=== PATIENT | male | born 1990 | race Caucasian/White ===

== ENCOUNTER 2017-01-19 20:05 | Emergency (ER) | payer SELFPAY ==
[~2017-01-19] VITALS: Ht 175.3 cm; Wt 72.6 kg
[~2017-01-19 20:05] MED LIST: AMOXICILLIN; NEXIUM20 MG PO; ZOFRAN ODT4 MG PO
--- NOTE | 2017-01-19 20:08 | NUR ---
[facility] [place] [facility] TO ER OF1
[2017-01-19 20:09] VITALS: BP 156/86
--- NOTE | 2017-01-19 20:09 | NUR ---
26/M [place] [employer] C/O PRE BOOK. PD STATES PT BEING BOOKED FOR PUBLIC INTOXICATION. PT HAS LAC ON RIGHT EYEBROW <1CM IN LENGHT; BLEEDING UNDER CONTROL AT THIS TIME. AAOx4, PERRLA, BREATHING EVEN AND EFFORTLESS, VSS. ERMD NOTIFIED OF PATIENT STATUS.
--- NOTE | 2017-01-19 20:19 | NUR ---
Patient being evaluated by physician.
[2017-01-19] MEDS ORDERED: BACITRACIN OINT 500 UNITS/GM PKT TP ONE (20:31)
[2017-01-19 20:42] VITALS: BP 142/84
--- NOTE | 2017-01-19 20:42 | NUR ---
Patient discharged with v/s stable. Written and verbal after care instructions given and explained. Patient verbalized understanding. Police with in custody. All questions addressed prior to discharge. Advised to follow up with PMD. NO S/S OF DISTRESS ON DISCHARGE.
== END 2017-01-19 20:42 ==
LOC: MED 20:05
DX: Z02.89 Encounter for other administrative examinations (principal); K21.9 Gastro-esophageal reflux disease without esophagitis; F17.200 Nicotine dependence, unspecified, uncomplicated; Z88.6 Allergy status to analgesic agent; Z71.6 Tobacco abuse counseling

== ENCOUNTER 2018-09-19 08:25 | Emergency (ER) | payer MEDICAID ==
[~2018-09-19] VITALS: Ht 177.8 cm; Wt 74.8 kg
[~2018-09-19 08:25] MED LIST changes: -AMOXICILLIN; +ESOM20EC PO; -NEXIUM20 MG PO; +ONDA4ODT1 PO; -ZOFRAN ODT4 MG PO
[2018-09-19 08:35] VITALS: BP 114/91
--- NOTE | 2018-09-19 08:41 | NUR ---
PATIENT PRESENTS TO ED WITH THE CHIEF C/O LOWER BACK PAIN SINCE COUPLE OF WEEKS AND COUGH X1 MONTHS. PT STATES SYMPTOMS GET WORSE. DENIES BLOOD IN SPUTUM. PT HAD FEVER 2 DAYS AGO. TOOK NICLO FOR FEVER. DENIES N/V/D; SKIN IS PINK/WARM/DRY; AAOX4 WITH EVEN AND STEADY GAIT; LUNGS CLEAR BL; HR EVEN AND REGULAR; PT DENIES ANY FEVER, CP, SOB AT THIS TIME. HAS COUGH AT THIS TIME; PATIENT STATES PAIN OF 6/10 AT THIS TIME; VSS; PATIENT POSITIONED FOR COMFORT; HOB ELEVATED; BEDRAILS UP X2; BED DOWN. ER MD MADE AWARE OF PT STATUS.
--- NOTE | 2018-09-19 08:59 | NUR ---
PT TAKEN BY RADIOLOGY FOR CHEST X-RAY VIA WHEEL CHAIR. PT ON STABLE CONDITION.
[2018-09-19] MEDS ORDERED: HYDROcodone/APAP 5/325 MG 1 TAB TAB PO ONE (09:45)
[2018-09-19 09:56] LABS: BASOPHILS % (AUTO) 1.1 % (0.0-2.0); EOSINOPHILS # (AUTO) 0.2 K/uL (0-0.4); EOSINOPHILS % (AUTO) 5.4 % (0.0-4.0); HEMATOCRIT 49.1 % (36-52); HEMOGLOBIN 16.4 g/dL (12.0-18.0); LYMPHOCYTES # (AUTO) 1.5 K/uL (2.0-11.5); LYMPHOCYTES % (AUTO) 32.8 % (20.5-51.1); MEAN CORPUSCULAR HEMOGLOBIN 30 pg (27-31); MEAN CORPUSCULAR HGB CONC 33 g/dL (33-37); MEAN CORPUSCULAR VOLUME 90.7 fL (80-94); MONOCYTES # (AUTO) 0.3 K/uL (0.8-1.0); MONOCYTES % (AUTO) 7.7 % (1.7-9.3); NEUTROPHILS # (AUTO) 2.4 K/uL (1.8-7.7); PLATELET COUNT (AUTO) 203 K/uL (140-450); RED BLOOD CELL COUNT(AUTO) 5.41 MIL/uL (4.20-6.10); RED CELL DISTRIBUTION WIDTH 14.5 % (11.6-13.7); WHITE BLOOD COUNT (AUTO) 4.5 K/uL (4.8-10.8)
--- NOTE | 2018-09-19 09:59 | NUR ---
PT TAKEN BY FUR POINTER FOR CT ABDOMEN VIA WHEEL CHAIR.
--- NOTE | 2018-09-19 10:05 | NUR ---
BACK FROM CT.
[2018-09-19 10:14] LABS: ANION GAP 8.7 (8-16); CARBON DIOXIDE 32.2 mmol/L (21-32); POTASSIUM 4.9 mmol/L (3.5-5.1)
[2018-09-19 10:20] LABS: ALBUMIN 3.7 g/dL (3.4-5.0); TOTAL BILIRUBIN 0.5 mg/dL (0.0-1.0)
[2018-09-19 10:22] LABS: APPEARANCE,URINE CLEAR (CLEAR); COLOR,URINE YELLOW (YELLOW)
[2018-09-19 10:23] LABS: BILIRUBIN,URINE NEGATIVE (NEGATIVE); BLOOD, URINE NEGATIVE (NEGATIVE); LEUKOCYTE ESTERASE ,URINE NEGATIVE (NEGATIVE); NITRITE, URINE NEGATIVE (NEGATIVE); UGLUCOSE NEGATIVE (NEGATIVE)
--- NOTE | 2018-09-19 11:33 | NUR ---
Patient discharged with v/s stable. Written and verbal after care instructions given and explained. Patient alert, oriented and verbalized understanding of instructions. Ambulatory with steady gait. All questions addressed prior to discharge. ID band removed. Patient advised to follow up with PMD. Rx of AZITHROMYCIN, NORCO, TESSALON AND ALBUTEROL given. Patient educated on indication of medication including possible reaction and side effects. Opportunity to ask questions provided and answered.
[2018-09-19 11:34] VITALS: BP 129/67
== END 2018-09-19 11:33 | disposition home or self-care (01) ==
LOC: MED 08:25
DX: M54.5 Low back pain (principal); J20.9 Acute bronchitis, unspecified; Z88.8 Allergy status to other drugs, medicaments and biological substances; Z79.899 Other long term (current) drug therapy; R20.0 Anesthesia of skin
CPT/HCPCS: 36415; 71046; 80053; 81003; 83690; 85025; 99285

== ENCOUNTER 2019-11-04 08:53 | Emergency (ER) | payer SELFPAY ==
[~2019-11-04] VITALS: Ht 175.3 cm; Wt 77.1 kg
[~2019-11-04 08:53] MED LIST changes: +ONDA-24 PO; -ONDA4ODT1 PO
[2019-11-04 09:00] VITALS: BP 145/85
--- NOTE | 2019-11-04 09:05 | NUR ---
pt ambulated to ER bed 03
[2019-11-04] MEDS ORDERED: PROMETHAZINE 25 MG/ML VIAL IM ONE (09:15)
[2019-11-04] MEDS ORDERED: hydrOXYzine HCL 25 MG TAB PO ONE (09:15)
[2019-11-04] MEDS ORDERED: predniSONE 20 MG TAB PO ONE (09:15)
[2019-11-04] MEDS ORDERED: ALBUTEROL SULFATE/IPRATROPIU 3 ML SOL IH ONE (09:15)
[2019-11-04] MEDS ORDERED: cefTRIAXone 1,000 MG in LIDOCAINE MPF 1% 2.1 ML IM ONE (09:15)
--- NOTE | 2019-11-04 09:15 | NUR ---
DR CHILDS AT BEDSIDE
--- NOTE | 2019-11-04 09:16 | NUR ---
C/O PRODUCTIVE COUGH WITH PHLEM FOR A "COUPLE MONTHS". WHEEZING BILATERALLY. BREATHING LABORED WITH RR AT 23. PT ON RA. TACHY AT 110. PT ADDS THAT HE RECENTLY STOPPED USING HERION A "COUPLE DAYS AGO". PT STATES HE HAS N/V/D AND FEELS GENERALIZED ITCHING AND BODY ACHES /10 SINCE WITHDRAWAL. BOWEL SOUNDS ACTIVE IN ALL 4 QUADRANTS. ABDOMEN SOFT AND FLAT. NONTENDER TO TOUCH. PT ALERT AND AWAKE, AMBULATORY WITH STEADY GAIT. PH- SUBSTANCE ABUSE
--- NOTE | 2019-11-04 09:18 | NUR ---
PT GIVEN SUBSTANCE ABUSE PACKET
[2019-11-04] MEDS ORDERED: FAMOTIDINE 20 MG TAB PO ONE (09:20)
--- NOTE | 2019-11-04 09:20 | NUR ---
PT REFUSED FLU SWAB AT THIS TIME, STATES THE SWAB UP THE NOSE GIVES HIM THE "JITTERS"
[2019-11-04] MEDS ORDERED: cefTRIAXone 1,000 MG VIAL ONE (09:23)
[2019-11-04] MEDS ORDERED: LIDOCAINE MPF 1% 5 ML ONE (09:24)
--- NOTE | 2019-11-04 09:25 | NUR ---
PO MEDICATIONS ADMINISTERED. PT TOLERATED WELL.
--- NOTE | 2019-11-04 09:30 | NUR ---
RT AT BEDSIDE
--- NOTE | 2019-11-04 09:39 | NUR ---
IM MEDICATIONS ADMINISTERED
[2019-11-04 10:16] LABS: APPEARANCE,URINE CLEAR (CLEAR); BILIRUBIN,URINE 1+ (NEGATIVE); BLOOD, URINE NEGATIVE (NEGATIVE); COLOR,URINE YELLOW (YELLOW); LEUKOCYTE ESTERASE ,URINE NEGATIVE (NEGATIVE); NITRITE, URINE NEGATIVE (NEGATIVE); PH,URINE 6.5 (5.0-9.0); UGLUCOSE NEGATIVE (NEGATIVE)
--- NOTE | 2019-11-04 10:20 | NUR ---
nadr. pt states pain 5/10, some decrease of itchiness.
[2019-11-04 10:21] LABS: BARBITURATE, URINE NEG. ng/ml (NEG <=200); BENZODIAZEPINE, URINE NEG. ng/mL (NEG <=200); CANNABINOID, URINE POS. ng/mL (NEG <=50); COCAINE, URINE NEG. ng/mL (NEG <=300); OPIATE, URINE POS. ng/mL (NEG <=2000); PHENCYCLIDINE SCREEN,URINE NEG. ng/mL (NEG <=25)
[2019-11-04 10:24] VITALS: BP 136/87
--- NOTE | 2019-11-04 10:24 | NUR ---
Patient discharged with v/s stable. Written and verbal after care instructions given and explained regarding upper resp infection to pt and mother. Patient alert, oriented and verbalized understanding of instructions. Ambulatory with steady gait. All questions addressed prior to discharge. ID band removed. Patient advised to follow up with PMD. Rx of promethazine, motrin, and doxycycline given. Patient educated on indication of medication including possible reaction and side effects. Opportunity to ask questions provided and answered. pt requested ativan upon discharge, dr amaya made aware. per dr amaya, pt to not recieve ativan
[2019-11-04 10:29] LABS: RBC,URINE NONE SEEN /HPF (0-5); WBC,URINE 0-5 /HPF (0-5)
== END 2019-11-04 10:24 | disposition home or self-care (01) ==
LOC: MED 08:53
DX: J44.9 Chronic obstructive pulmonary disease, unspecified (principal); F12.10 Cannabis abuse, uncomplicated; F17.200 Nicotine dependence, unspecified, uncomplicated; Z88.8 Allergy status to other drugs, medicaments and biological substances
CPT/HCPCS: 80305; 81001; 87086; 94640; 96372; 99284; J0696; J2001; J2550; J7512; J7620